=== PATIENT | female | born 2000 | race African-American/Black ===

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

== ENCOUNTER 2024-04-21 12:00 | Emergency (ER) | payer MEDICAID ==
[~2024-04-21] VITALS: Ht 172.7 cm; Wt 75.0 kg
[~2024-04-21 12:00] MED LIST: NAPR-681 MT
[2024-04-21 12:20] VITALS: BP 115/80; PULSE 79; RESP 18; TEMP 98; O2SAT 99
== END 2024-04-21 15:02 | disposition home or self-care (01) ==
LOC: ER 12:00
DX: M25.461 Effusion, right knee (principal); M25.561 Pain in right knee
CPT/HCPCS: 73562; 81025; 99283